=== PATIENT | male | born 1995 | race Caucasian/White ===

== ENCOUNTER 2017-05-06 22:09 | Emergency (ER) | payer MEDICARE, MEDICAID ==
[~2017-05-06] VITALS: Ht 167.6 cm; Wt 70.9 kg
[2017-05-06 22:09] VITALS: BP 146/74
== END 2017-05-06 23:43 | disposition left against medical advice (07) ==
LOC: M ED 22:09
DX: Z53.21 Procedure and treatment not carried out due to patient leaving prior to being seen by health care provider (principal)

== ENCOUNTER → 2017-09-12 | Outpatient (REF) | payer MEDICARE, MEDICAID ==
[2017-09-12 20:46] LABS: INFLUENZA A AMPLIFICATION POSITIVE (NEGATIVE); INFLUENZA B AMPLIFICATION NEGATIVE (NEGATIVE); RSV AMPLIFICATION NEGATIVE (NEGATIVE)
== END ==
LOC: M LAB REF 14:26
DX: J11.1 Influenza due to unidentified influenza virus with other respiratory manifestations (principal)
CPT/HCPCS: 87631

== ENCOUNTER → 2022-05-27 | Outpatient (REF) | payer MEDICARE, MEDICAID | LOC: M LAB REF 16:34 | PROVIDERS: ATTEND Pediatrics | DX: N50.82 Scrotal pain (principal) ==

== ENCOUNTER → 2022-07-05 | Outpatient (CLI) | payer MEDICARE, MEDICAID | LOC: M RAD 13:43 | PROVIDERS: ATTEND Nurse Practitioner Women's Health | DX: I86.1 Scrotal varices (principal) ==

== ENCOUNTER 2023-06-28 07:40 | Emergency (ER) | payer MEDICARE, MEDICAID ==
[2023-06-28 08:22] LABS: MEAN CORPUSCULAR HEMOGLOBIN 31.5 pg (27.0-33.0); MEAN CORPUSCULAR HGB CONC 34.1 g/dl (32.0-36.5); MEAN CORPUSCULAR VOLUME 92.4 fl (80.0-96.0); PLATELET COUNT, AUTOMATED 271 10^3/uL (150-450); RED BLOOD COUNT 4.76 10^6/uL (4.30-6.10); WHITE BLOOD COUNT 6.5 10^3/uL (4.0-10.0)
[2023-06-28] MEDS ORDERED: MED REC IN PROGRESS XX SCH (08:45)
[2023-06-28 08:48] LABS: AMPHETAMINES LEVEL URINE NEGATIVE (NEGATIVE); BARBITURATES URINE NEGATIVE (NEGATIVE); BENZODIAZEPINES URINE NEGATIVE (NEGATIVE)
[2023-06-28 08:49] LABS: COCAINE METABOLITE URINE NEGATIVE (NEGATIVE); METHADONE URINE NEGATIVE (NEGATIVE); OPIATES URINE NEGATIVE (NEGATIVE); PHENCYCLIDINE URINE NEGATIVE (NEGATIVE)
[2023-06-28 08:51] LABS: ETHYL ALCOHOL (ETHANOL) 0.148 % (0.000-0.010)
[2023-06-28 08:53] LABS: ALBUMIN 4.6 G/DL (3.2-5.2); ALKALINE PHOSPHATASE 58 U/L (46-116); ALT/SGPT 41 U/L (7.0-40); AST/SGOT 63 U/L (<34); BILIRUBIN,DIRECT 0.2 MG/DL (<0.4); BILIRUBIN,TOTAL 0.5 MG/DL (0.3-1.2); BLOOD UREA NITROGEN 17 MG/DL (9-23); CALCIUM LEVEL 8.8 MG/DL (8.5-10.1); CARBON DIOXIDE LEVEL 24 MMOL/L (20-31); CHLORIDE LEVEL 110 MMOL/L (98-107); GLOMERULAR FILTRATION RATE > 60.0 (>60); GLUCOSE, FASTING 99 MG/DL (60-100); POTASSIUM SERUM 3.9 MMOL/L (3.5-5.1); SALICYLATE LEVEL < 3.0 MG/DL (<30); SODIUM LEVEL 146 MMOL/L (136-145); TOTAL PROTEIN 7.6 G/DL (5.7-8.2)
[2023-06-28 08:54] LABS: THYROID STIMULATING HORMONE 0.939 uIU/ML (0.55-4.78)
[2023-06-28 09:01] LABS: CANNABINOIDS URINE POSITIVE (NEGATIVE)
[2023-06-28] MEDS ORDERED: HOME MED LIST COMPLETE! XX SCH (11:00)
[2023-06-28 13:19] VITALS: BP 137/72; TEMP 98.2; O2SAT 98
== END 2023-06-28 13:16 | disposition home or self-care (01) ==
LOC: M ED 07:40
DX: F43.0 Acute stress reaction (principal); Z88.0 Allergy status to penicillin; Z88.1 Allergy status to other antibiotic agents